=== PATIENT | male | born 1975 | race African-American/Black ===

== ENCOUNTER 2021-09-11 10:06 | Outpatient (CLI) | payer OTHER | END 2021-09-11 10:07 | disposition home or self-care (01) | LOC: BICRAD 10:06 | PROVIDERS: ATTEND Internal Medicine | DX: Z02.71 Encounter for disability determination (principal); M47.812 Spondylosis without myelopathy or radiculopathy, cervical region; Z98.890 Other specified postprocedural states | CPT/HCPCS: 72040 ==

== ENCOUNTER 2023-01-12 10:38 | Emergency (ER) | payer OTHER, SELFPAY ==
[2023-01-12 12:35] LABS: SARS-CoV-2 NAA Rapid Test Not Detected (NotDetected)
[2023-01-12 12:39] LABS: Bacteria/HPF None Seen HPF (None Seen); Bilirubin Negative (Negative); Blood, Urine Negative (Negative); CAUTI Indications for Culture Dysuria,urgency,freq; Clarity Clear (Clear); Glucose, Urine (Dipstick) Normal (Negative); Ketone, Urine Negative (Negative); Leukocyte Negative Leu/uL (Negative); Nitrite Negative (Negative); Protein, Urine (Dipstick) 10 mg/dL (Neg-Trace); RBC/HPF 0-3 HPF (0-3); Specific Gravity, Urine 1.032 (1.002-1.036); Squamous Epithelial None Seen HPF (0-3); Urobilinogen Normal mg/dL (Less than 2); WBC/HPF 0-3 HPF (0-3); pH, Urine 5.5 (5.0-9.0)
[2023-01-12 12:41] LABS: Urine Culture Reflex No No
[2023-01-12] MEDS ORDERED: Acetaminophen 500 MG TAB ONE (12:55)
== END 2023-01-12 13:42 | disposition home or self-care (01) ==
LOC: ERS 10:38
DX: A08.4 Viral intestinal infection, unspecified (principal); R11.2 Nausea with vomiting, unspecified; F17.210 Nicotine dependence, cigarettes, uncomplicated; I10 Essential (primary) hypertension; Z20.822 Contact with and (suspected) exposure to COVID-19
CPT/HCPCS: 71045; 81001